=== PATIENT | male | born 1960 | race Caucasian/White ===

== ENCOUNTER → 2018-02-10 | Outpatient (CLI) | payer OTHER ==
[~2018-02-10] VITALS: Ht 177.8 cm; Wt 134.7 kg
[~2018-02-10] MED LIST: ALLO300T2 PO; ALLOPURINAL; AMLO10TA6 PO; AMOX500C2 PO; ASPI-983 PO; CATHETER FLUSH 10 ML SYR IV PRN; ENAL20TA PO; INDO50CA11 PO; LOSA100T8 PO; METO-370 PO; MULT1TAB69 PO; REGADENOSON 0.4 MG/5 ML SYR (LEXISCAN) IV ONE; VITA-189 PO
[2018-02-10 09:29] VITALS: BP 187/95
--- NOTE | 2018-02-11 09:02 | STRESS TEST ---
DATE OF SERVICE: 02/10/2018 RESTING AND POST REGADENOSON TECHNETIUM-99M TETROFOSMIN SPECT CT IMAGING ORDERING PHYSICIAN: Dr. Negro. PRIMARY PHYSICIAN: Dr. Dunaway. CLINICAL DIAGNOSES: Hypertension, shortness of breath and type 2 diabetes. Baseline images were carried out after injection of 9.01 mCi of technetium-99m Tetrofosmin. This was followed by 0.4 mg Regadenoson and 28.8 mCi of technetium-99m Tetrofosmin. The electrocardiogram showed sinus rhythm. The electrocardiogram did not change significantly with the Regadenoson infusion. The patient tolerated the procedure well. Review of images at rest and following stress does not indicate significant perfusion defects consistent with significant myocardial ischemia or infarction. Gated images show normal global left ventricular systolic function with normal regional wall motion. Left ventricular ejection fraction is calculated to be 77%. Left ventricular end diastolic volume is 70 mL. TID is absent (0.91). CONCLUSIONS: 1. No evidence of any significant myocardial ischemia or infarction on this study. 2. Normal regional wall motion. 3. Normal global left ventricular systolic function with a calculated ejection fraction of 77%. Job ID: [id number] DocumentID: [id number] Dictated Date: 02/11/2018 08:25:56 Courtesy Car Driver Date: 02/11/2018 09:02:14 Dictated By: ULI NEGRO MD, MA, FACP, FACC,
== END ==
LOC: CARD 07:31
PROVIDERS: ATTEND Internal Medicine Cardiovascular Disease
DX: I10 Essential (primary) hypertension (principal); M79.89 Other specified soft tissue disorders; R06.02 Shortness of breath; E11.9 Type 2 diabetes mellitus without complications
CPT/HCPCS: 78452; 93017

== ENCOUNTER → 2018-03-16 | Outpatient (CLI) | payer OTHER ==
[~2018-03-16] MED LIST changes: -CATHETER FLUSH 10 ML SYR IV PRN; -REGADENOSON 0.4 MG/5 ML SYR (LEXISCAN) IV ONE
== END ==
LOC: CARD 07:38
PROVIDERS: ATTEND Internal Medicine Cardiovascular Disease
DX: M79.89 Other specified soft tissue disorders (principal); I10 Essential (primary) hypertension; R06.02 Shortness of breath; E11.9 Type 2 diabetes mellitus without complications
CPT/HCPCS: 93306

== ENCOUNTER 2019-12-17 05:45 | Outpatient (CLI) | payer OTHER ==
[~2019-12-17] VITALS: Ht 177.8 cm; Wt 109.1 kg
[~2019-12-17 05:45] MED LIST changes: -AMLO10TA6 PO; +AMLO10TA7 PO; +ASPI-1238 PO; -ASPI-983 PO; -INDO50CA11 PO; +INDO50CA82 PO; +LOSA100T57 PO; -LOSA100T8 PO; -METO-370 PO; +METO50TA7 PO; +MULT-567 PO; -MULT1TAB69 PO
[2019-12-17] MEDS ORDERED: POTA10TA36 PO (12:12)
[2019-12-17] MEDS ORDERED: CLON0.2T PO (12:12)
[2019-12-17] MEDS ORDERED: FURO20TA4 PO (12:12)
[2019-12-17] MEDS ORDERED: AMLO10TA7 PO (12:12)
[2019-12-17] MEDS ORDERED: METF-397 PO (12:12)
[2019-12-17] MEDS ORDERED: METO50TA7 PO (12:12)
== END 2019-12-17 12:14 | disposition home or self-care (01) ==
LOC: PREOP 05:45
PROVIDERS: ATTEND Internal Medicine
DX: Z01.818 Encounter for other preprocedural examination (principal)

== ENCOUNTER 2019-12-24 08:22 | Day surgery (SDC) | payer OTHER ==
--- NOTE | 2019-12-13 06:03 | HISTORY AND PHYSICAL ---
DATE OF SERVICE: COLONOSCOPY HISTORY AND PHYSICAL DATE OF ADMISSION: 12/24/2019. HISTORY: The patient is a 59-year-old white male referred by Dr. Wilkins for his first screening colonoscopy. He seemed to be of average risk. He is not aware of any family history for colon cancer or polyps. He denies any melena or bright red blood per rectum or abdominal pain. He has noted no change in bowel habit. He is consciously trying to cut back, no longer eating out for lunch and has lost over 20 pounds in the past six months. He reports his energy level is fair. PAST MEDICAL HISTORY: Significant for hypertension and hyperlipidemia with no known history of vascular disease. He has a history of type 2 diabetes and gout. He has not had a gout flare in over a year. MEDICATIONS ON ADMISSION: Include clonidine 0.2 mg t.i.d., losartan 100 mg daily, metoprolol 50 mg daily, amlodipine 10 mg daily, allopurinol 300 mg daily, indomethacin 500 mg q.8 hours p.r.n. gout flare, furosemide 20 mg daily, potassium 10 mEq daily, and metformin 500 mg I believe daily and he also takes sildenafil 50 mg prior to sexual relations. PAST SURGICAL HISTORY: He has had an appendectomy many years ago. FAMILY HISTORY: Father of complications of prostate cancer at the age of 78. Mother of complications of stroke at the age of 76. Has one brother and one sister. He does not know a lot about their health history, but does not feel they have any known significant health problems, 59-year-old brother and 41-year-old sister. 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 He does report about 4 beers per day alcohol intake for many years. REVIEW OF SYSTEMS: CONSTITUTIONAL: He denies night sweats, chills or fever. Has had weight loss as noted above due to dietary change. CARDIOVASCULAR: He denies chest pain, shortness of breath, orthopnea, PND or pedal edema. GASTROINTESTINAL: As noted in the HPI. PULMONARY: Denies cough or wheezing. PHYSICAL EXAMINATION: GENERAL: Reveals a pleasant overweight white male, appears to be in no acute distress. Weight 254 pounds. VITAL SIGNS: Blood pressure 120/76. HEENT: Unremarkable. CHEST: Clear. CARDIOVASCULAR: Reveals regular rate and rhythm without murmur, S3 or S4. ABDOMEN: Soft, supple without mass, organomegaly or tenderness. EXTREMITIES: Reveal no cyanosis, clubbing or edema. ASSESSMENT AND PLAN: The patient was set up for his first screening colonoscopy on 12/24/2019. Prep instructions with the Suprep kit were given and questions were answered. I thank you for the referral of this pleasant gentleman. Job ID: [id number] DocumentID: [id number] Dictated Date: 12/01/2019 11:47:27 Corporate Technical Recruiter Date: 12/01/2019 12:29:19 Dictated By: MIGUEL VERMA MD
[2019-12-24] VITALS (9 sets, daily range): BP systolic 92–158; BP diastolic 50–89
[~2019-12-24] VITALS: Ht 177.8 cm; Wt 109.1 kg
[~2019-12-24 08:22] MED LIST changes: +CLON0.2T PO; -ENAL20TA PO; +ENAL20TA16 PO; +FURO20TA4 PO; +METF-397 PO; +POTA10TA36 PO
[2019-12-24] MEDS ORDERED: D5 LR IV SOLUTION 1,000 ML IV ONE (08:25)
[2019-12-24] MEDS ORDERED: D5 LR IV SOLUTION 1,000 ML IV STA (08:33)
[2019-12-24] MEDS ORDERED: fentaNYL INJECTION 100 MCG/2 ML AMP IVP ONE (08:45)
[2019-12-24] MEDS ORDERED: LIDOCAINE JELLY 2% 6 ML SYRINGE MM PRN (08:45)
--- NOTE | 2019-12-24 08:47 | Pre-Op Note & Conscious Sedat ---
Pre-Operative Progress Note H&P Reviewed The H&P was reviewed, patient examined and no changes noted. Date H&P Reviewed: Dec 24, 2019 Time H&P Reviewed: 08:47 Conscious Sedation Pre-Proced ASA Score 2 For ASA 3 and 4: Consider anesthesia and medical clearance. Also, for patients with a history of failed moderate sedation consider anesthesia. Airway Lungs Heart ASA score ASA 1: a normal healthy patient ASA 2: a patient with a mild systemic disease (mid diabetes, controlled hypertension, obesity ASA 3: a patient with a severe systemic disease that limits activity (angina, COPD, prior Myocardial infarction) ASA 4: a patient with an incapacitating disease that is a constant threat to life (CHF, renal failure) ASA 5: a moribund patient not expected to survive 24 hrs. (ruptured aneurysm) ASA 6: a declared brain- patient whose organs are being harvested. For emergent operations, add the letter E after the classification Mallampati Classification Grade 2 Sedation Plan Analgesia, Amnesia, Plan communicated to team members, Discussed options with patient/fam, Discussed risks with patient/fam The patient is an appropriate candidate to undergo the planned procedure, sedation, and anesthesia. The patient immediately re-assessed prior to indication. MIGUEL VERMA MD Dec 24, 2019 08:47
[2019-12-24] MEDS ORDERED: MIDAZOLAM 5 MG/5 ML (VERSED) VIAL ONE (09:30)
[2019-12-24] MEDS ORDERED: LIDOCAINE JELLY 2% 6 ML SYRINGE ONE (09:30)
[2019-12-24] MEDS ORDERED: fentaNYL INJECTION 100 MCG/2 ML AMP ONE (09:30)
[2019-12-24] MEDS: MIDAZOLAM 5 MG/5 ML (VERSED) VIAL IV PRN ×2 (09:36→09:39)
--- NOTE | 2019-12-24 17:50 | OPERATIVE REPORT ---
DATE OF SERVICE: COLONOSCOPY SUMMARY REFERRING PHYSICIAN: Dr. Leroy Wilkins. INDICATION FOR THE PROCEDURE: Screening colonoscopy. DESCRIPTION OF PROCEDURE: The patient was placed in the left lateral decubitus position. Prior to undergoing colonoscopy, digital rectal evaluation was performed. Anal sphincter tone was normal and the perianal reflexes intact. The prostate was small in size. No nodules were noted. No abnormalities were noted on digital inspection of anal canal or distal rectal vault. The colonoscope was then inserted into the rectum and under direct visualization advanced to the cecum. The cecum was identified by identification of the ileocecal valve and cecal strap. Photographic documentation was obtained. Quality of the prep was good. FINDINGS: There was no evidence for internal or external hemorrhoids and the rectum was unremarkable. Present in the mid sigmoid colon was a diminutive 3 mm sessile hyperplastic-appearing polyp, it was biopsied and ablated. The remainder of the sigmoid colon was unremarkable with no evidence for diverticular disease. The descending colon and splenic flexure were unremarkable. Present in the mid transverse colon was a diminutive hyperplastic-appearing polyp, was biopsied and ablated and submitted for histopathology. The remainder of the transverse colon, hepatic flexure, ascending colon and cecum were unremarkable. ASSESSMENT: Two diminutive hyperplastic appearing polyps were noted and subsequently removed via hot forceps, one from the mid sigmoid colon, the other one from the mid transverse colon. This was otherwise normal colonoscopy to the cecum. Considering family history, I would advocate consideration for repeat surveillance colonoscopy in 5 years. I thank you for the referral of this pleasant gentleman. Job ID: [id number] DocumentID: [id number] Dictated Date: 12/24/2019 10:58:54 Director Of Casework Date: 12/24/2019 17:49:28 Dictated By: MIGUEL VERMA MD
== END 2019-12-24 11:00 | disposition home or self-care (01) ==
LOC: ENDO 08:22
PROVIDERS: ATTEND Internal Medicine
DX: Z12.11 Encounter for screening for malignant neoplasm of colon (principal); K63.5 Polyp of colon; I10 Essential (primary) hypertension; E78.5 Hyperlipidemia, unspecified; Z79.899 Other long term (current) drug therapy
CPT/HCPCS: 82962